=== PATIENT | female | born 1950 | race Caucasian/White ===

== ENCOUNTER 2016-04-22 13:15 | Emergency (ER) | payer OTHER ==
[~2016-04-22] VITALS: Ht 152.4 cm; Wt 59.1 kg
[2016-04-22] MEDS ORDERED: FLUT16H NASAL (13:52)
[2016-04-22] MEDS ORDERED: CALC-746 PO (13:52)
[2016-04-22] MEDS ORDERED: AMIT50TA3 PO (13:52)
[2016-04-22] MEDS ORDERED: LEVO25TA4 PO (13:52)
[2016-04-22 14:31] LABS: APPEARANCE,URINE CLEAR (CLEAR); GLUCOSE, URINE (UA) NEGATIVE (NEGATIVE); KETONES,URINE NEGATIVE (NEGATIVE); LEUKOCYTE ESTERASE ,URINE TRACE (NEGATIVE); OCCULT BLOOD,URINE MODERATE (NEGATIVE); PH,URINE 5.5 (5.0-8.0); PROTEIN,URINE NEGATIVE (NEGATIVE)
[2016-04-22 14:32] LABS: ADD UA MICROSCOPIC YES
[2016-04-22 14:50] LABS: SQUAMOUS EPITHELIAL CELL,UR Few /LPF (None Seen)
[2016-04-22 14:57] LABS: BASOPHILS % (AUTO) 0.3 % (0.0-2.0); EOSINOPHILS % (AUTO) 1.2 % (1.0-6.0); LYMPHOCYTES # (AUTO) 2.1 K/uL (1.0-4.8); LYMPHOCYTES % (AUTO) 24.4 % (22.0-44.0); MEAN CORPUSCULAR HEMOGLOBIN 29.3 pg (26.0-34.0); MEAN CORPUSCULAR HGB CONC 32.7 G/dL (31.0-37.0); MEAN CORPUSCULAR VOLUME 90 fL (80-100); MONOCYTES # (AUTO) 0.5 K/uL (0.1-1.0); MONOCYTES % (AUTO) 5.6 % (2.0-9.0); NEUTROPHILS # (AUTO) 5.9 K/uL (1.8-7.7); NEUTROPHILS % (AUTO) 68.5 % (40.0-70.0); PLATELET COUNT (AUTO) 256 K/uL (150-450); RED BLOOD CELL COUNT(AUTO) 5.13 MIL/uL (4.00-5.20); RED CELL DISTRIBUTION WIDTH 13.1 % (11.5-14.5); WHITE BLOOD COUNT (AUTO) 8.6 K/uL (4.5-11.0)
[2016-04-22 15:00] LABS: ANION GAP 8 mmol/L (8-16); CALCIUM, TOTAL 9.7 mg/dL (8.8-10.5); CARBON DIOXIDE 29 mmol/L (22-29); CHLORIDE 104 mmol/L (98-107); CREATININE 0.77 mg/dL (0.60-1.30); GLOMERULAR FILTR. RATE CALC > 60 mL/min (>60); POTASSIUM 3.9 mmol/L (3.5-5.1); SODIUM SERUM 141 mmol/L (136-145); UREA NITROGEN, BLOOD 11 mg/dL (7-18)
[2016-04-22 16:44] VITALS: BP 132/89
[2016-04-22] MEDS ORDERED: CIPROFLOXACIN HCL 250 MG TABLET PO ONE (17:00)
== END 2016-04-22 17:10 | disposition home or self-care (01) ==
LOC: EMS 13:18
DX: N39.0 Urinary tract infection, site not specified (principal)
CPT/HCPCS: 87086; 99284